=== PATIENT | male | born 1955 | race African-American/Black ===

== ENCOUNTER 2018-09-15 10:02 | Outpatient (CLI) | payer BC ==
[2018-09-15 11:30] LABS: Estimated GFR-MDRD - POC Greater than 90
--- NOTE | 2018-09-15 13:11 | MRI ---
BRAIN MRI WITH AND WITHOUT CONTRAST MRI PITUITARY WITH AND WITHOUT CONTRAST: INDICATION: A 63-year-old male with a history of prior benign pituitary tumor resection. Comparison is made to alondra [place] brain MRI 04/24/2017 at [facility]. FINDINGS: Stable postsurgical change of the sella with left asymmetric soft tissue enhancement which likely rel ates to residua of patient's pituitary gland. The infundibulum is grossly stable and maintains locat ion near the midline with slight inferior leftward deviation. There is no evidence of intraaxial mass, midline shift, or ventriculomegaly. There are a few scatter ed punctate signal abnormalities of the bilateral cerebral hemispheres which likely relate to mild ch ronic ischemic disease. No acute territorial infarction. 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 Bilateral signal alteration of the scalp soft tissues is stable. IMPRESSION: Stable postoperative brain MRI. POS: [facility]
== END 2018-09-15 10:03 | disposition home or self-care (01) ==
LOC: BICMRI 10:02
PROVIDERS: ATTEND Neurological Surgery
DX: D35.2 Benign neoplasm of pituitary gland (principal); Z98.890 Other specified postprocedural states
CPT/HCPCS: 70553; 82565

== ENCOUNTER 2019-04-21 05:47 | Day surgery (SDC) | payer BC ==
[2019-04-19 16:56] VITALS: BMI 28.0
[2019-04-21] MEDS ORDERED: Fentanyl 100 MCG/2 ML VIAL ONE (06:10)
[2019-04-21] MEDS ORDERED: Bupivacaine/Epinephrine 0.25% 30 ML VIAL ONE (06:53)
--- NOTE | 2019-04-21 11:51 | OP ---
DATE OF PROCEDURE: 04/21/2019 PREOPERATIVE DIAGNOSIS: Left inguinal hernia. PROCEDURE PERFORMED: Left inguinal hernia repair with mesh. INDICATIONS: The patient is a 63-year-old male, who has a painful bulge in left groin. He is able to reduce it. He has had a previous right inguinal hernia repair. FINDINGS: He had an indirect left inguinal hernia. It was chronic with very thickened sac very adherent to the cord structures. DESCRIPTION OF PROCEDURE: After informed consent was obtained, the patient was taken to the operating room and given general mask anesthesia, placed in the supine position. Left groin was prepped and draped in usual fashion. Local anesthesia infiltrated subcutaneously and deep. A transverse left inguinal incision was performed. Subcu divided sharply. The fascia was grasped and the external oblique fascia was incised in direction of its fibers through the external ring. The spermatic cord was very thickened. This was dissected from the pubic tubercle and isolated with a Familia drain. Cremasteric fibers were to expose the hernia sac. This was dissected from surrounding cord structures very carefully using blunt and sharp dissection. This was done down to the internal ring. The sac was large and was amputated about midpoint and closed with a 2-0 silk suture. Then, the sac was reduced and reduction maintained with a PHS hernia system. This was laid out and sutured to the pubic tubercle medially, tucked under the external oblique fascia laterally. A notch was cut out for the spermatic cord. The cord placed anatomically. Hemostasis was assured. The external oblique fascia closed with a running 3-0 Vicryl. Milton was closed with interrupted 3-0 Vicryl and the skin closed with a running subcuticular 4-0 Rapide. Steri-Strips applied. Sterile bandage applied. The patient tolerated the procedure well, transferred to Recovery in good condition. Sponge and needle count verified correct x2. Job ID: [id number]
[2019-04-21] MEDS ORDERED: PROPOFOL 200 MG/20 ML VIAL ONE (16:02)
[2019-04-21] MEDS ORDERED: Ondansetron PF 4 MG/2 ML Vial ONE (16:02)
[2019-04-21] MEDS ORDERED: Ketorolac Tromethamine 30 MG/ML VIAL ONE (16:02)
[2019-04-21] MEDS ORDERED: Lidocaine 1% PF 5 ML VIAL ONE (16:02)
== END 2019-04-21 10:00 | disposition home or self-care (01) ==
LOC: SDC 05:47
PROVIDERS: ATTEND Surgery
PROC: 0YU60JZ Supplement Left Inguinal Region with Synthetic Substitute, Open Approach (ICD-10-PCS; principal; 2019-04-21)
DX: K40.90 Unilateral inguinal hernia, without obstruction or gangrene, not specified as recurrent (principal); I10 Essential (primary) hypertension; E11.9 Type 2 diabetes mellitus without complications; Z79.4 Long term (current) use of insulin; Z79.899 Other long term (current) drug therapy
CPT/HCPCS: 36416; J0690; J1885; J2001; J2405; J2704; J3010

== ENCOUNTER 2019-05-10 22:54 | Emergency (ER) | payer BC ==
[2019-05-10 23:33] LABS: #Lymphocytes 1.5 thou/uL (1.20-3.40); #Monocytes 0.4 thou/uL (0.11-0.59); #Neutrophils 8.3 thou/uL (1.40-6.50); %Basophils 0.2 % (0.0-1.0); %Eosinophils 0.4 % (0.0-10.0); %Monocytes 3.7 % (0.0-10.0); %Neutrophils 80.7 % (42.0-75.0); Hemoglobin 12.7 g/dL (14.0-18.0); Mean Corpuscular HGB CONC 34.9 g/dL (32.0-36.0); Mean Corpuscular Hemoglobin 28.5 pg (27.0-31.0); Mean Corpuscular Volume 81.9 fL (78.0-98.0); Mean Platelet Volume 8.2 fL (7.4-10.4); Platelet Count 401 thou/uL (130-400); RBC Distribution Width 12.2 % (11.5-14.5); Red Blood Cell (RBC) Count 4.45 mill/uL (4.70-6.10); White Blood Cell (WBC) Count 10.2 thou/uL (4.8-10.8)
[2019-05-10 23:54] LABS: ALT (SGPT) Less than 7 U/L (8-55); AST (SGOT) 9 U/L (5-34); Albumin 3.6 g/dL (3.4-4.8); Alkaline Phosphatase 79 U/L (40-150); Anion Gap 6 mmol/L (10-20); BUN (Urea Nitrogen) 9 mg/dL (8.4-25.7); Bilirubin, Total 0.8 mg/dL (0.2-1.2); Calc. Creatinine Clearance 0 mL/min (70-130); Calcium 8.9 mg/dL (7.8-10.44); Carbon Dioxide 30 mmol/L (23-31); Chloride 101 mmol/L (98-107); Estimated GFR-MDRD 78; Globulin 3.9 g/dL (2.4-3.5); Glucose 268 mg/dL (80-115); Potassium 3.9 mmol/L (3.5-5.1); Protein, Total 7.5 g/dL (5.8-8.1); Sodium 133 mmol/L (136-145)
== END 2019-05-11 01:25 | disposition home or self-care (01) ==
LOC: ERS 22:54
DX: T78.40XA Allergy, unspecified, initial encounter (principal); E10.9 Type 1 diabetes mellitus without complications; I10 Essential (primary) hypertension; E03.9 Hypothyroidism, unspecified; E78.00 Pure hypercholesterolemia, unspecified; Z79.899 Other long term (current) drug therapy
CPT/HCPCS: 36415; 80053; 83880; 85025; 99283

== ENCOUNTER 2019-05-13 10:00 | Emergency (ER) | payer BC ==
[2019-05-13] MEDS ORDERED: Ondansetron PF 4 MG/2 ML Vial ONE (10:19)
[2019-05-13 10:39] LABS: #Lymphocytes 1.3 thou/uL (1.20-3.40); #Monocytes 0.5 thou/uL (0.11-0.59); #Neutrophils 11.6 thou/uL (1.40-6.50); %Basophils 0.1 % (0.0-1.0); %Eosinophils 0.2 % (0.0-10.0); %Lymphocytes 9.8 % (21.0-51.0); %Monocytes 3.4 % (0.0-10.0); %Neutrophils 86.4 % (42.0-75.0); Hemoglobin 12.9 g/dL (14.0-18.0); Mean Corpuscular HGB CONC 35.3 g/dL (32.0-36.0); Mean Corpuscular Volume 79.4 fL (78.0-98.0); Mean Platelet Volume 8.8 fL (7.4-10.4); Platelet Count 438 thou/uL (130-400); RBC Distribution Width 11.8 % (11.5-14.5); White Blood Cell (WBC) Count 13.4 thou/uL (4.8-10.8)
[2019-05-13] MEDS ORDERED: methylPREDNISolone Sod Succ/PF 125 MG/2 ML VIAL ONE (10:39)
[2019-05-13] MEDS ORDERED: diphenhydrAMINE 50 MG/ML VIAL ONE (10:39)
[2019-05-13] MEDS ORDERED: Famotidine/PF 20 mg/2ml Vial ONE (10:39)
[2019-05-13 11:11] LABS: ALT (SGPT) Less than 7 U/L (8-55); AST (SGOT) 11 U/L (5-34); Albumin 3.6 g/dL (3.4-4.8); Alkaline Phosphatase 74 U/L (40-150); Anion Gap 16 mmol/L (10-20); BUN (Urea Nitrogen) 13 mg/dL (8.4-25.7); Bilirubin, Total 0.9 mg/dL (0.2-1.2); Calc. Creatinine Clearance 0 mL/min (70-130); Calcium 8.8 mg/dL (7.8-10.44); Carbon Dioxide 23 mmol/L (23-31); Chloride 99 mmol/L (98-107); Estimated GFR-MDRD Greater than 90; Globulin 4.1 g/dL (2.4-3.5); Glucose 322 mg/dL (80-115); Potassium 3.6 mmol/L (3.5-5.1); Protein, Total 7.7 g/dL (5.8-8.1); Sodium 134 mmol/L (136-145)
--- NOTE | 2019-05-13 11:29 | CT ---
CT ABDOMEN AND PELVIS WITH IV CONTRAST 05/13/2019 CLINICAL INFORMATION: Patient with sudden onset of shortness of breath and difficulty swallowing. Patient also reports hist ory of prior hernia surgery 3 weeks ago and now has abdominal swelling. Vomiting. COMPARISON: CT abdomen and pelvis on 08/24/2016. Technique: Multiple contiguous axial CT images are obtained through the abdomen and pelvis with IV contrast. Cor onal reformatted images are provided. FINDINGS: Lower Chest: There is thickening of the visualized most distal esophagus extending to the level of th e GE junction. The most superior extent of the esophageal thickening is not imaged. There is surrounding fluid within the paraesophageal location in the lower posterior mediastinum. The lung bas es are clear. Vessels: Abdominal aorta is normal in caliber. Abdomen: Portal vein:Patent Gallbladder: Within normal limits for CT imaging. Liver: Calcified granuloma seen in the dome of the liver. Spleen: within normal limits. Pancreas: within normal limits. Adrenals: within normal limits. Kidneys: within normal limits. Bowel: Normal caliber. Appendix: The appendix is visualized and normal in caliber. Peritoneum: There is a small heterogeneous collection seen within the left anterolateral aspect of th e pelvis at the level of the inguinal canal measuring approximately 4.1 cm. This is in region of prior fat-containing inguinal hernia. Mesentery and Retroperitoneum: No enlarged mesenteric or retroperitoneal lymph nodes. Abdominal Wall: There is a large heterogeneous collection within the subcutaneous soft tissues left a nterolateral aspect of the pelvis, and this collection extends inferiorly and into the superior aspect of the scrotum. Areas of increased density are seen within this collection which may represent a hematoma. A punctate focus of gas is seen in the collection, and infection of a hematoma is a possibility. This collection measures 13 cm craniocaudal x 5.2 cm transverse x 4.3 cm AP. This collec tion is likely contiguous with the small collection within the anterolateral left pelvis. Pelvis: Reproductive Organs: No pelvic masses. Pelvis tiny amount of free fluid is seen in the lower pelvis. No pelvic mass is appreciated. No lymph adenopathy is seen. Bladder: within normal limits. Bones: within normal limits. IMPRESSION: 1. Circumferential wall thickening involving the distal esophagus. The esophageal wall thickening ext ends to the level of the GE junction. There is surrounding paraesophageal fluid within the lower posterior mediastinum. Most superior extent of esophageal thickening is not imaged. Esophagitis versu s neoplastic process are differential considerations. Endoscopy is recommended for further evaluation. 2. Large heterogeneous collection with findings suggesting a hematoma are seen in the subcutaneous so ft tissues of the left anterolateral pelvis with collection extending into the superior aspect of the scrotum. Punctate focus of gas is seen in this collection, and findings may be related to seconda ry infection of a hematoma. 3. Small heterogeneous collection within the left anterolateral pelvis likely contiguous with the col lection in the subcutaneous soft tissues. 4. Tiny amount of free fluid in the pelvis. Above findings discussed with Dr. Kumar in the emergency department on 05/13/2019 at 1122 hours. CODE CR. Transcribed Date/Time: 05/13/2019 11:45 AM
--- NOTE | 2019-05-13 11:32 | RAD ---
XR Chest 1 View Portable HISTORY: Dyspnea COMPARISON: 08/24/2016 FINDINGS: The heart size is normal. The lungs are well expanded without focal areas of consolidation, pneumothorax or pleural effusions. IMPRESSION: No radiographic evidence of acute cardiopulmonary process.
--- NOTE | 2019-05-13 14:02 | RAD ---
XR Barium Swallow Esophagus History: Chest pain. Evaluate for leak. Comparison: CT abdomen and pelvis same day Findings: Patient was given 30 mL of Gastrografin water-soluble contrast. No evidence for leak. No st ricture. Impression: No evidence for leak or distal esophageal stricture. Of note this was a limited evaluatio n to evaluate for esophageal leak.
== END 2019-05-13 14:32 | disposition home or self-care (01) ==
LOC: ERS 10:00
DX: T78.3XXA Angioneurotic edema, initial encounter (principal); E10.9 Type 1 diabetes mellitus without complications; E03.9 Hypothyroidism, unspecified; E78.00 Pure hypercholesterolemia, unspecified; I10 Essential (primary) hypertension; Z79.899 Other long term (current) drug therapy; Z79.84 Long term (current) use of oral hypoglycemic drugs
CPT/HCPCS: 36415; 71045; 74177; 74220; 80053; 83605; 85025; 93005; 96374; 96375; J1200; J2405; J2930; S0028

== ENCOUNTER 2019-05-15 20:41 | Inpatient (IN) | payer BC ==
[2019-05-15 21:31] LABS: #Eosinphils 0.1 thou/uL (0.0-0.7); #Lymphocytes 1.6 thou/uL (1.20-3.40); #Monocytes 0.4 thou/uL (0.11-0.59); #Neutrophils 7.2 thou/uL (1.40-6.50); %Basophils 0.2 % (0.0-1.0); %Eosinophils 0.6 % (0.0-10.0); %Lymphocytes 17.2 % (21.0-51.0); %Monocytes 3.9 % (0.0-10.0); Hemoglobin 13.4 g/dL (14.0-18.0); Mean Corpuscular HGB CONC 35.1 g/dL (32.0-36.0); Mean Corpuscular Hemoglobin 28.4 pg (27.0-31.0); Mean Platelet Volume 8.4 fL (7.4-10.4); Platelet Count 479 thou/uL (130-400); RBC Distribution Width 12.1 % (11.5-14.5); Red Blood Cell (RBC) Count 4.72 mill/uL (4.70-6.10); White Blood Cell (WBC) Count 9.2 thou/uL (4.8-10.8)
[2019-05-15] MEDS ORDERED: methylPREDNISolone Sod Succ/PF 125 MG/2 ML VIAL ONE (21:35)
[2019-05-15] MEDS ORDERED: diphenhydrAMINE 50 MG/ML VIAL ONE (21:35)
[2019-05-15] MEDS ORDERED: Famotidine/PF 20 mg/2ml Vial ONE (21:35)
[2019-05-15 21:52] LABS: ALT (SGPT) 7 U/L (8-55); AST (SGOT) 9 U/L (5-34); Albumin 3.4 g/dL (3.4-4.8); Alkaline Phosphatase 72 U/L (40-150); Anion Gap 9 mmol/L (10-20); BUN (Urea Nitrogen) 10 mg/dL (8.4-25.7); Bilirubin, Total 0.6 mg/dL (0.2-1.2); Calc. Creatinine Clearance 0 mL/min (70-130); Calcium 8.6 mg/dL (7.8-10.44); Carbon Dioxide 29 mmol/L (23-31); Chloride 99 mmol/L (98-107); Estimated GFR-MDRD 81; Globulin 3.9 g/dL (2.4-3.5); Glucose 241 mg/dL (80-115); Potassium 3.8 mmol/L (3.5-5.1); Protein, Total 7.3 g/dL (5.8-8.1); Sodium 133 mmol/L (136-145)
[2019-05-16] MEDS ORDERED: Ondansetron PF 4 MG/2 ML Vial IVP PRN (02:07)
[2019-05-16] MEDS ORDERED: Ondansetron ODT 4 MG TAB SL PRN (02:07)
[2019-05-16] MEDS ORDERED: Sodium Chloride 0.9% 1,000 ML IV SCH (02:08)
[2019-05-16] MEDS ORDERED: Dextrose 5% in Water 1,000 ML IV PRN (02:14)
[2019-05-16] MEDS ORDERED: Dextrose 50% Abboject 50 ML SYRINGE SLOW IVP PRN (02:14)
[2019-05-16] MEDS ORDERED: Acetaminophen 325 MG TAB PO PRN (02:18)
[2019-05-16] MEDS ORDERED: Acetaminophen 650 MG Suppository PR PRN (02:18)
--- NOTE | 2019-05-16 02:37 | HP ---
PRIMARY CARE DOCTOR: Reynaldo Espinoza MD CODE STATUS: Full code. TIME OF EVALUATION: 1:00 a.m. CHIEF COMPLAINT FOR THIS PATIENT: Evaluation for itching and lip swelling and feeling his throat was closing. HISTORY OF PRESENT ILLNESS: This is a 63-year-old male patient with past medical history of having allergies in the past 3 days. The patient came to the ER and got better, was discharged, came complaining of all the same symptoms, having some hives, lip swelling and feeling that his throat was closing with no clear triggers, no alleviating factors. The patient was not taking lisinopril in the past since the last time he was diagnosed with allergy, but the symptoms are continuing to get worse. Symptoms are severe. No clear triggers, no alleviating factors. Cannot establish a trigger. Initially thought it was medication, but he is not taking anymore. REVIEW OF SYSTEMS: All other systems reviewed and were negative except for the findings mentioned above. PAST MEDICAL HISTORY: The patient has a history of diabetes, hypothyroidism, high cholesterol, and hypertension. 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 PSYCHIATRIC HISTORY: No previous psych history. SOCIAL HISTORY: The patient denies alcohol use. No drug use. The patient has no smoking history. KNOWN ALLERGIES: No known drug allergies reported. MEDICATIONS: Lisinopril, atorvastatin, levothyroxine, potassium, Atarax, metformin. PHYSICAL EXAMINATION: VITAL SIGNS: On presentation, blood pressure 108/71 with heart rate 106, temperature 99.8, oxygen saturation 98% on room air. GENERAL APPEARANCE: The patient is alert, oriented, in no acute distress. HEENT: Eyes, normal conjunctivae. Moist oral mucosa. The patient has significant swelling of the lips and change in his voice. However, there is no stridor on physical exam. RESPIRATORY: Bilateral air entry. No rales. No wheezes. Symmetric expansion. CARDIOVASCULAR: Normal rate, regular rhythm. No murmurs. No gallop. No edema. ABDOMEN: Soft. Normal bowel sounds. MUSCULOSKELETAL: Baseline range of motion and strength. SKIN: Warm and intact. No pallor. No rash. No redness. Capillary refill seems to be intact. NEURO: No evidence of any new focal weakness. Cranial nerves seems to be intact. PSYCH: The patient is in good mood. No anxiety. Optimal judgment. LABORATORY DATA: Reviewed. The patient has white count of 9.2, hemoglobin 13.4, MCV 81, platelet count 279. Chemistry; sodium 133, potassium 3.8, chloride 99, carbon dioxide 29, anion gap 9, BUN 10, creatinine 1.11. GFR 81, glucose 241, calcium 8.6, total bilirubin 0.6, AST 9, ALT 7, alkaline phosphatase 72. Serum total protein 7.3, albumin 3.4, globulin 3.9, albumin to globulin ratio 0.9. ASSESSMENT AND PLAN: The patient will be placed in the hospital with following medical problems: 1. Allergy reaction, presenting with angioedema. The patient has significant swelling of the lips and change in his voice. The patient is receiving FFPs given concern for probably some hereditary component of this problem. The patient also had Benadryl, Pepcid, and steroids in ER. We will continue for now. 2. Normocytic anemia. This is mild, can be followed as outpatient. No need for any acute intervention at this point, it is chronic. 3. Hyponatremia, sodium 133, this is mild. No need for any acute intervention. Reconcile home medications. 4. Uncontrolled diabetes. The patient has hyperglycemia with blood sugar of 241. We will place the patient on a sliding scale for optimal control. 5. Hypertension, this is chronic, stable, reconcile home medications, except for CAROLYN inhibitors. 6. Deep venous thrombosis prophylaxis. Job ID: [id number]
[2019-05-16] MEDS ORDERED: Insulin Regular 300 UNITS/3 ML VIAL SC PRN (03:35)
[2019-05-16 03:59] VITALS: BMI 30.4
[2019-05-16 04:20] LABS: #Basophils 0.1 thou/uL (0.0-0.2); #Lymphocytes 0.6 thou/uL (1.20-3.40); #Monocytes 0.1 thou/uL (0.11-0.59); #Neutrophils 9.8 thou/uL (1.40-6.50); %Basophils 1.3 % (0.0-1.0); %Eosinophils 0.1 % (0.0-10.0); %Lymphocytes 5.5 % (21.0-51.0); %Monocytes 1.3 % (0.0-10.0); %Neutrophils 91.8 % (42.0-75.0); Hemoglobin 12.4 g/dL (14.0-18.0); Mean Corpuscular HGB CONC 34.5 g/dL (32.0-36.0); Mean Corpuscular Hemoglobin 28.1 pg (27.0-31.0); Mean Corpuscular Volume 81.5 fL (78.0-98.0); Mean Platelet Volume 8.7 fL (7.4-10.4); Platelet Count 453 thou/uL (130-400); Red Blood Cell (RBC) Count 4.43 mill/uL (4.70-6.10); White Blood Cell (WBC) Count 10.7 thou/uL (4.8-10.8)
[2019-05-16] MEDS: HumaLOG 300 UNITS/3 ML VIAL SC PRN ×5 (04:21→20:16)
[2019-05-16 04:38] LABS: Anion Gap 10 mmol/L (10-20); BUN (Urea Nitrogen) 13 mg/dL (8.4-25.7); Calc. Creatinine Clearance 85 mL/min (70-130); Carbon Dioxide 29 mmol/L (23-31); Chloride 99 mmol/L (98-107); Estimated GFR-MDRD 81; Glucose 320 mg/dL (80-115); Potassium 4.5 mmol/L (3.5-5.1); Sodium 133 mmol/L (136-145)
--- NOTE | 2019-05-16 12:00 | CON ---
DATE OF CONSULTATION: HISTORY OF PRESENT ILLNESS: Daniel Perea is a 63-year-old gentleman, who has been coming to the ER off and on, now for the last week with hives, lip swelling, throat swelling. He tells me he was finally admitted to the hospital. This morning, he is feeling better. The hives are better. He apparently has seen Dr. Strong in office for a lung nodule, which has been a 6 mm noncalcified in the right upper lobe, which has been stable. The patient is an extremely poor historian, but it appears he is a nonsmoker according to the , may be 1 or 2 cigarettes a day. No history of pneumonia, asthma, or TB. PAST MEDICAL HISTORY: Pertinent mainly for his hypothyroidism, high cholesterol, hypertension, and diabetes. PAST SURGICAL HISTORY: Amputation and previous hernia repair. HOME MEDICATIONS: 1. Metformin. 2. Lisinopril 20. 3. Insulin. ALLERGIES: NONE. SOCIAL HISTORY: Otherwise, unremarkable. REVIEW OF SYSTEMS: Otherwise, 10-point negative. PHYSICAL EXAMINATION: VITAL SIGNS: On examination, his saturations are 97% on room air, temperature 97, blood pressure 110/59, and respiratory rate 18. CHEST: No wheezing. CARDIAC: Normal S1 and S2. No gallops. ABDOMEN: No masses. THROAT: Unremarkable. LABORATORY DATA: Glucose 324, sodium 133. ASSESSMENT: 1. Hives, presumed angioedema, throat and lip swelling, possibly CAROLYN related. 2. Diabetes. 3. Lung nodule, followed by Dr. Strong, stable. PLAN: At this stage, nothing additional to offer. Avoid CAROLYN. Continue supportive care. He can be transferred out of the MICU. No urgent pulmonary issues. Job ID: [id number]
--- NOTE | 2019-05-16 16:22 | PDOC.HOSPP ---
- Subjective Encounter Date: 05/16/19 Encounter Time: 11:20 Subjective: Seen and examined. Feeling better. No new problem. - Objective Vital Signs & Weight: Vital Signs (12 hours) Temp Pulse Resp BP Pulse Ox 05/16/19 15:46 97.8 F 66 17 122/73 100 05/16/19 13:02 97.4 F L 85 18 97/61 98 05/16/19 10:35 97.4 F L 05/16/19 08:00 96 05/16/19 07:00 97.0 F L Weight Weight 194 lb 11.2 oz Most Recent Monitor Data Heart Rate from ECG 71 NIBP 111/59 NIBP BP-Mean 76 Respiration from ECG 16 SpO2 94 I&O: 05/15/19 05/16/19 05/17/19 06:59 06:59 06:59 Intake Total 422 Output Total 200 Balance 222 Result Diagrams: 05/16/19 03:57 05/16/19 03:57 Additional Labs: Accuchecks 05/16/19 05/16/19 05/16/19 15:51 10:22 05:58 POC Glucose 267 H 324 H 288 H 05/16/19 01:48 POC Glucose 281 H Hospitalist ROS - Medication Medications: Active Medications Generic Name Dose Route Start Last Admin Trade Name Freq PRN Reason Stop Dose Admin Insulin Human Lispro 0 units 05/16/19 02:14 05/16/19 11:24 Humalog SC 5 units .MILD SLIDING SCALE PRN Administration Mild Correctional Scale Insulin Human Lispro 0 units 05/16/19 04:17 05/16/19 04:21 Humalog SC 3 units .BEDTIME SLIDING SC PRN Administration BEDTIME SLIDING SCALE Protocol Sodium Chloride 10 ml 05/16/19 09:00 05/16/19 08:09 Flush - Normal Saline IVF Not Given Q12HR JORJE - Exam General Appearance: awake alert ENT: normocephalic atraumatic, moist mucosa ENT - other findings: no lip or tong sswelling noted. Heart: RRR Respiratory: CTAB Gastrointestinal: soft, non-tender, non-distended, normal bowel sounds Extremities: no cyanosis, no edema Extremities - other findings: left transmetacarpal amputation noted Neurological: cranial nerve grossly intact Psychiatric: A&O x 3 Hosp A/P (1) Angioedema Code(s): T78.3XXA - ANGIONEUROTIC EDEMA, INITIAL ENCOUNTER Status: Acute (2) Diabetes mellitus Code(s): E11.9 - TYPE 2 DIABETES MELLITUS WITHOUT COMPLICATIONS Status: Acute - Plan Continue current treatment. Transfer to medical floor.
[2019-05-17] MEDS ORDERED: diphenhydrAMINE 50 MG/ML VIAL IVP PRN (00:55)
[2019-05-17] MEDS ORDERED: Bacteriostatic Water 30 ML VIAL FS PRN (00:56)
[2019-05-17] MEDS ORDERED: methylPREDNISolone Sod Succ 40 MG VIAL IVP SCH (01:00)
[2019-05-17] MEDS: HumaLOG 300 UNITS/3 ML VIAL SC PRN ×2 (05:36→13:11)
[2019-05-17 06:48] LABS: Anion Gap 10 mmol/L (10-20); BUN (Urea Nitrogen) 13 mg/dL (8.4-25.7); Calc. Creatinine Clearance 104 mL/min (70-130); Calcium 8.4 mg/dL (7.8-10.44); Carbon Dioxide 27 mmol/L (23-31); Chloride 100 mmol/L (98-107); Estimated GFR-MDRD Greater than 90; Glucose 266 mg/dL (80-115); Potassium 4.3 mmol/L (3.5-5.1); Sodium 133 mmol/L (136-145)
--- NOTE | 2019-05-17 10:20 | PRG ---
DATE OF SERVICE: 05/17/2019 SUBJECTIVE: Daniel complains of nonspecific itching, swelling, though I see him to be in no distress. OBJECTIVE: VITAL SIGNS: His saturations are 97% on room air, respirations 18, temperature 97, blood pressure 120/78. CHEST: No wheezing or crackles. CARDIAC: Normal S1 and S2. No gallops. ABDOMEN: No masses. ASSESSMENT AND PLAN: Presumed angioedema, hives may be secondary to CAROLYN. Pulmonary roche appears to be stable. I would just avoid giving him CAROLYN. He will be sent home any time. Job ID: [id number]
[2019-05-17] MEDS ORDERED: diphenhydrAMINE 25 MG CAP PO PRN (12:49)
[2019-05-17 15:26] VITALS: BP 126/78; TEMP 97.6
--- NOTE | 2019-05-18 01:37 | DIS ---
DATE OF ADMISSION: 05/16/2019 DATE OF DISCHARGE: 05/17/2019 PRIMARY CARE PROVIDER: Reynaldo Espinoza MD DISCHARGE DIAGNOSES: 1. Angioedema. 2. Hives. 3. Hyponatremia. CONDITION OF PATIENT ON THE DAY OF DISCHARGE: Stable. I assessed Mr. Perea on the day of discharge. He denies any chest pain or shortness of breath. Lip swelling has improved. Eyelid swelling has improved. Vital signs are stable. S1 and S2 are heard, regular. Lungs are clear to auscultation bilaterally. CONSULTATIONS DURING THIS HOSPITALIZATION: Pulmonary and Critical Care Medicine, Dr. Jacobs. FOLLOWUP APPOINTMENTS: The patient is advised to follow up with primary care provider in 3 to 5 days time. DISCHARGE MEDICATIONS: Lisinopril has been discontinued. He has been advised to take his sitagliptin/metformin mg tablets 2 times a day, insulin as he was taking prior to this admission, and Lipitor 10 mg daily. HOSPITAL COURSE: Mr. Perea is a pleasant 63-year-old gentleman, who was admitted to [facility] on May 16, 2019, for angioedema in the context of lisinopril use. Lisinopril was discontinued. He was treated in the [facility] and subsequently transferred to the medical floor. He continued to improve. He has been cleared for discharge by Pulmonary and Critical Care Medicine Service. He has been advised to check his blood pressure and heart rate 3 times a day and show the readings to his primary care provider. He has been advised to stop lisinopril. Many thanks for allowing me to participate in your patient's care. Please feel free to contact me with any questions or concerns. DISCHARGE DESTINATION: Home. TIME SPENT: Total amount of time spent coordinating this discharge: 32 minutes. Job ID: [id number]
== END 2019-05-17 15:23 | disposition home or self-care (01) | DRG 916 ==
LOC: ERS 20:41 → IMCU/EMU 05-16 01:30 → T4-A 05-16 12:59
PROVIDERS: ADMIT Hospitalist; ATTEND Hospitalist
DX: T78.3XXA Angioneurotic edema, initial encounter (principal); E87.1 Hypo-osmolality and hyponatremia; E03.9 Hypothyroidism, unspecified; E78.00 Pure hypercholesterolemia, unspecified; I10 Essential (primary) hypertension; D64.9 Anemia, unspecified; R91.1 Solitary pulmonary nodule; E11.65 Type 2 diabetes mellitus with hyperglycemia; Z89.112 Acquired absence of left hand; F17.210 Nicotine dependence, cigarettes, uncomplicated
CPT/HCPCS: 36415; 36416; 36430; 71045; 74177; 74220; 80048; 80053; 83605; 85025; 86850; 86900; 86901; 93005; 96374; 96375; J1200; J2405; J2920; J2930; P9059; Q9963; Q9967; S0028

== ENCOUNTER 2019-05-18 00:53 | Inpatient (IN) | payer BC ==
[2019-05-18] MEDS ORDERED: diphenhydrAMINE 50 MG/ML VIAL ONE (01:22)
[2019-05-18] MEDS ORDERED: Famotidine/PF 20 mg/2ml Vial ONE (01:22)
[2019-05-18] MEDS ORDERED: methylPREDNISolone Sod Succ/PF 125 MG/2 ML VIAL ONE ×2 (01:22→01:27)
[2019-05-18] MEDS ORDERED: EPINEPHrine 1 MG/ML AMP ONE ×2 (02:10→02:40)
[2019-05-18] MEDS ORDERED: Ondansetron ODT 4 MG TAB SL PRN (04:51)
[2019-05-18] MEDS ORDERED: Ondansetron PF 4 MG/2 ML Vial IVP PRN (04:51)
[2019-05-18] MEDS ORDERED: EPINEPHrine 1 MG/ML AMP IM PRN ×2 (04:53→05:21)
[2019-05-18] MEDS ORDERED: Acetaminophen 325 MG TAB PO PRN (05:15)
[2019-05-18] MEDS ORDERED: HumaLOG 300 UNITS/3 ML VIAL SC PRN ×4 (05:20→08:48)
[2019-05-18] MEDS ORDERED: Dextrose 5% in Water 1,000 ML IV PRN (05:20)
[2019-05-18] MEDS ORDERED: Dextrose 50% Abboject 50 ML SYRINGE SLOW IVP PRN (05:20)
[2019-05-18] MEDS: diphenhydrAMINE 50 MG/ML VIAL IVP SCH ×3 (06:48→18:07)
--- NOTE | 2019-05-18 07:10 | HP ---
PRIMARY CARE PHYSICIAN: Reynaldo Espinoza MD CODE STATUS: Full code. TIME OF EVALUATION: 4 a.m. CHIEF COMPLAINT: Tongue swelling. HISTORY OF PRESENT ILLNESS: This is a 63-year-old male patient with past medical history of angioedema, who was recently discharged from the hospital for the same reason, diabetes type 1, hypothyroidism, high cholesterol, hypertension, who came to the hospital after having severe sudden onset and gradually worsening allergic reaction including eyes, tongue, upper respiratory airways, the patient's symptoms were severe to the point that he received in the ER not only Solu-Medrol, Benadryl and Pepcid, but also epinephrine x2. The symptoms have improved after the epinephrine. There was a concern of the patient having familial angioedema and for that reason, he is receiving 2 FFPs. The patient's has reported that the patient had been exposed to some "strange smell" in the house in her car that could be related to a car battery that was damaged in the past few days in the house. Other than that, we are unable to specifically determine what is giving the allergies to the patient. REVIEW OF SYSTEMS: All other systems were reviewed and negative except for the findings mentioned above. GASTROINTESTINAL: The patient had difficulty swallowing. PAST MEDICAL HISTORY: Positive for diabetes, hypothyroidism, high cholesterol, hypertension. PAST SURGICAL HISTORY: Amputation of 2 through 5 digits in the left hand, cardiac catheterization, and hernia repair. PSYCHIATRIC HISTORY: No previous psychiatric history. SOCIAL HISTORY: No alcohol. No drugs. No smoking history. KNOWN ALLERGIES: No known drug allergies. REPORTED MEDICATIONS: Positive for; 1. Atorvastatin. 2. Levothyroxine. 3. Tanzeum. 4. Atarax. 5. Metformin. PHYSICAL EXAMINATION: VITAL SIGNS: On presentation, blood pressure 117/75 with heart rate 91, respiratory rate was 18, temperature 98.4, pain was 8, oxygen saturation was 98% on room air. GENERAL APPEARANCE: The patient is alert, oriented, no acute distress. HEENT: The patient has bilateral swelling of the periorbital area and the eyelids. The patient also have tongue swelling and dysarthria due to the tongue swelling. No stridor. RESPIRATORY: Bilateral air entry. No rales. No wheezes. Symmetric expansion. CARDIOVASCULAR: Normal rate, regular rhythm. No murmurs. No gallop. No edema. ABDOMEN: Soft. Normal bowel sounds. MUSCULOSKELETAL: Baseline range of motion and strength. SKIN: Warm and dry. No pallor. No rash. No redness. Capillary refill seems to be intact. NEUROLOGIC: No evidence of any new or focal weakness. Cranial nerves seems to be intact. PSYCHIATRIC: The patient is in good mood. No anxiety. Optimal judgment. IMAGING: EKG was reviewed. The patient has normal sinus rhythm with a rate of [address] and prolonged QT. Labs reviewed and the only labs that we have available are the labs from prior to discharge that basically showed no significant abnormalities except for hyperglycemia. ASSESSMENT AND PLAN: The patient will be placed in the hospital with following medical problems. 1. Severe allergic reaction including angioedema with swelling of the tongue with dysarthria and also feeling of his throat closing, the patient also had bilateral eyelid swelling and also the periorbital area edema. The patient has received anti H1/H2, supportive care, also was given steroids. The patient also was given epinephrine x2. For that reason, we will monitor the patient closely. Symptoms seems to be improving, but very slowly. The patient had been ordered to receive FFP since the last time it looks the patient had some improvement with that. 2. Diabetes, reconcile home medications, place the patient on sliding scale. 3. Normocytic anemia, this has been stable. This can be followed as outpatient. 4. Deep venous thrombosis prophylaxis. 5. The patient may need an It Assistant to see him to determine why he is making allergies to. Job ID: [id number]
[2019-05-18] MEDS: Enoxaparin Sodium 40 MG/0.4 ML SYRINGE SC SCH (09:47)
[2019-05-18] MEDS: methylPREDNISolone Sod Succ/PF 125 MG/2 ML VIAL IVP SCH ×2 (09:47→22:09)
[2019-05-18] MEDS: Famotidine/PF 20 mg/2ml Vial SLOW IVP SCH (09:47)
[2019-05-18] MEDS: Insulin Glargine 30 UNITS in Pre-Filled Syringe 1 EACH SC SCH ×2 (13:32→22:09)
--- NOTE | 2019-05-18 14:28 | PDOC.HOSPP ---
- Subjective Encounter Date: 05/18/19 Encounter Time: 11:30 Subjective: no trouble breathing or swallowing still has his tongue swollen but far less than yesterday per patient no urticaria/itching anywhere today - Objective Vital Signs & Weight: Vital Signs (12 hours) Temp Pulse Resp Pulse Ox 05/18/19 08:00 98 05/18/19 05:32 97.7 F 18 96 05/18/19 05:00 98 05/18/19 04:40 97.8 F 81 18 95 Weight Weight 198 lb 4.8 oz Most Recent Monitor Data Heart Rate from ECG 66 NIBP 156/83 NIBP BP-Mean 107 Respiration from ECG 16 SpO2 98 I&O: 05/17/19 05/18/19 05/19/19 06:59 06:59 06:59 Intake Total 0 10.5 Output Total 200 Balance -200 10.5 Additional Labs: Accuchecks 05/18/19 06:08 POC Glucose 350 H Hospitalist ROS - Medication Medications: Active Medications Generic Name Dose Route Start Last Admin Trade Name Lindsey PRN Reason Stop Dose Admin Diphenhydramine HCl 25 mg 05/18/19 06:00 05/18/19 13:32 Benadryl IVP 05/21/19 15:15 25 mg Q6HR JORJE Administration Enoxaparin Sodium 40 mg 05/18/19 09:00 05/18/19 09:47 Lovenox SC 40 mg 0900 JORJE Administration Famotidine 20 mg 05/18/19 09:00 05/18/19 09:47 Pepcid SLOW IVP 05/22/19 15:15 20 mg DAILY JORJE Administration Insulin Glargine 30 units/ 0.3 mls @ 0 mls/hr 05/18/19 09:00 05/18/19 13:32 Miscellaneous Medication SC 0.3 mls BID JORJE Administration Methylprednisolone Sodium Succinate 125 mg 05/18/19 09:00 05/18/19 09:47 Solu-Medrol IVP 05/21/19 15:15 125 mg BID JORJE Administration - Exam General Appearance: awake alert Eye: PERRL, anicteric sclera ENT: no oropharyngeal lesions, moist mucosa ENT - other findings: tongue swelling+ Neck: supple, no JVD Heart: RRR, no rubs Respiratory: no wheezes, no rales Gastrointestinal: soft, non-tender, non-distended, normal bowel sounds Extremities: no cyanosis, no edema Neurological: cranial nerve grossly intact, no focal deficits Psychiatric: A&O x 3 Hosp A/P (1) Angioedema Code(s): T78.3XXA - ANGIONEUROTIC EDEMA, INITIAL ENCOUNTER Status: Suspected Qualifiers: Encounter type: subsequent encounter Qualified Code(s): T78.3XXD - Angioneurotic edema, subsequent encounter (2) Hypothyroidism Code(s): E03.9 - HYPOTHYROIDISM, UNSPECIFIED Status: Chronic Qualifiers: Hypothyroidism type: unspecified Qualified Code(s): E03.9 - Hypothyroidism , unspecified (3) HTN (hypertension) Code(s): I10 - ESSENTIAL (PRIMARY) HYPERTENSION Status: Chronic Qualifiers: Hypertension type: essential hypertension Qualified Code(s): I10 - Essential (primary) hypertension (4) Diabetes mellitus Code(s): E11.9 - TYPE 2 DIABETES MELLITUS WITHOUT COMPLICATIONS Status: Chronic Qualifiers: Diabetes mellitus type: type 2 Diabetes mellitus senior care insulin use: with senior care use - Plan is on solucortef, pepcid and benadryl add lantus bid hemostable, maintaining airway with no compromise may tx to medical floor needs further w/u with allergy/immunology as outpt Patient recieved 2 of epi, 2 ffp's, in addition to solumedrol, benadryl and pepcid in ER on arrival.
--- NOTE | 2019-05-18 14:39 | CON ---
DATE OF CONSULTATION: HISTORY OF PRESENT ILLNESS: Mr. Perea is a 63-year-old male. He is admitted to the intermediate care unit with diagnosis of angioedema. He apparently was recently admitted with similar event. He says he had tongue swelling and hives. He was treated in the emergency department and was admitted. He received FFP. PAST MEDICAL HISTORY: Remarkable for diabetes, hypothyroidism, lipid disorder, and hypertension. 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 He has had a herniorrhaphy and a cardiac catheterization. SOCIAL HISTORY: He is a nonsmoker, not a daily drinker. MEDICATIONS: He is on atorvastatin, Synthroid, Tanzeum, Atarax, and metformin prior to admission. PHYSICAL EXAMINATION: GENERAL: He is absolutely in no distress. Awakening from sleep. VITAL SIGNS: He is afebrile. Heart rate is 81, respiratory rate is 18, oximetry is 96%, and blood pressure is 124/68. HEAD AND NECK: Unremarkable. His tongue is not swollen. His oral exam is normal. His neck is without lymphadenopathy. LUNGS: Clear. SKIN: He does not have a rash. HEART: Regular rhythm. S1 and S2 are normal. ABDOMEN: Soft and nontender. EXTREMITIES: Without clubbing, cyanosis, or edema. NEURO: Nonfocal. IMPRESSION: 1. ?angioedema, resolved. He probably should be referred to an leather stitcher for an outpatient workup. 2. History of diabetes. 3. History of hypothyroidism. 4. History of lipid disorder. 5. History of hypertension. PLAN: He appears medically stable at this time. I would think he could be discharged home. Job ID: [id number]
[2019-05-19] MEDS: diphenhydrAMINE 50 MG/ML VIAL IVP SCH ×3 (01:00→11:32)
[2019-05-19 04:40] LABS: Anion Gap 10 mmol/L (10-20); BUN (Urea Nitrogen) 14 mg/dL (8.4-25.7); Calc. Creatinine Clearance 119 mL/min (70-130); Calcium 8.7 mg/dL (7.8-10.44); Carbon Dioxide 25 mmol/L (23-31); Chloride 104 mmol/L (98-107); Estimated GFR-MDRD Greater than 90; Glucose 192 mg/dL (80-115); Potassium 4.1 mmol/L (3.5-5.1); Sodium 135 mmol/L (136-145)
[2019-05-19 04:47] LABS: Band 1 % (5-11); Hemoglobin 11.3 g/dL (14.0-18.0); Hypochromia SLIGHT = 6-15 cells (100X) (0-5/hpf); Lymphocytes 2 % (21-51); MDiff Complete? YES; Mean Corpuscular HGB CONC 32.8 g/dL (32.0-36.0); Mean Corpuscular Hemoglobin 26.4 pg (27.0-31.0); Mean Corpuscular Volume 80.6 fL (78.0-98.0); Mean Platelet Volume 10.4 fL (7.4-10.4); Monocytes 1 % (0-10); Neutrophil 96 % (42-75); Platelet Count 187 thou/uL (130-400); Platelet Morphology Comment Appears Adequate; RBC Distribution Width 12.2 % (11.5-14.5); Red Blood Cell (RBC) Count 4.26 mill/uL (4.70-6.10); White Blood Cell (WBC) Count 11.1 thou/uL (4.8-10.8)
[2019-05-19 06:10] VITALS: BMI 26.4
[2019-05-19] MEDS ORDERED: metFORMIN 500 MG TAB PO SCH (08:00)
[2019-05-19] MEDS ORDERED: sitaGLIPtin Phosphate 25 MG TAB PO SCH (08:00)
[2019-05-19] MEDS ORDERED: Non-Formulary Item 1 EACH (Sitagliptin Phos/Metformin Hcl [Janumet] 1 TABLET) PO SCH (08:00)
[2019-05-19] MEDS ORDERED: predniSONE 20 MG TAB PO SCH (08:00)
[2019-05-19] MEDS: Enoxaparin Sodium 40 MG/0.4 ML SYRINGE SC SCH (08:56)
[2019-05-19] MEDS: Famotidine/PF 20 mg/2ml Vial SLOW IVP SCH (08:56)
[2019-05-19] MEDS ORDERED: Insulin Glargine 15 UNITS in Pre-Filled Syringe 1 EACH SC SCH (09:00)
[2019-05-19] MEDS ORDERED: Atorvastatin Calcium 10 MG TAB PO SCH (09:00)
[2019-05-19] MEDS ORDERED: Alogliptin 6.25 MG TAB PO SCH (09:15)
--- NOTE | 2019-05-19 09:55 | PRG ---
DATE OF SERVICE: 05/19/2019 SUBJECTIVE: Daniel Perea has no complaints. He denies tongue swelling or hives. He says he feels great. OBJECTIVE: VITAL SIGNS: He is afebrile, heart rate 70, respiratory rate 16, oximetry is 99, and blood pressure 139/78. HEENT: His tongue is normal. LUNGS: Clear. HEART: Regular rhythm. ABDOMEN: Soft. EXTREMITIES: Without edema. LABORATORY DATA: White count 11.1, hemoglobin 11.3, and platelets 187. Electrolytes are normal. IMPRESSION: ? Angioedema versus an allergic reaction to something. I have suggested allergy testing as an outpatient. He can be tapered off steroids over a week. Job ID: [id number]
[2019-05-19 15:57] VITALS: BP 117/69; TEMP 97.5
--- NOTE | 2019-05-19 19:04 | DIS ---
DATE OF ADMISSION: 05/18/2019 DATE OF DISCHARGE: 05/19/2019 DISCHARGE DISPOSITION: Home. PRIMARY DISCHARGE DIAGNOSIS: Angioedema/urticaria, resolved, this was recurrent. SECONDARY DISCHARGE DIAGNOSES: Hypertension, hypothyroidism, and diabetes mellitus type 2. PROCEDURES DONE DURING HOSPITALIZATION: H and H 11 and 34, platelet count 187, MCV is 90, and white count of 11. Discharge BUN and creatinine are 14 and 0.8. DISCHARGE MEDICATIONS: 1. Atorvastatin 10 mg p.o. daily. 2. Janumet mg p.o. 1 tablet twice daily. 3. Benadryl 25 mg twice daily for a period of 6 days. 4. Lantus 10 units subcu daily for 1 week. 5. Prednisone tapering dose starting at 10 mg twice daily for 4 days, then daily for 4 days, then half tablet for 4 days and to discontinue. ALLERGIES: NO KNOWN DRUG ALLERGIES. INPATIENT CONSULT: Dr. Becker for Pulmonary Critical Care. DISCHARGE PLAN: The patient to follow up with Dr. Juan Shafer, allergy cleaner operator tomorrow at 8:00 a.m. He also needs to follow up with Dr. Espinoza, his primary care physician in 1 week BRIEF COURSE DURING HOSPITALIZATION: The patient initially got readmitted after being discharged for urticaria with angioedema symptoms. He came in with complaints of tongue swelling with swelling of his eyelids, difficulty breathing, and itching in his extremities with wheal and flare. The patient's also mentions that he got exposed to some strange smell in the house in car, which could be related to a car battery that was damaged in the past few days. He has not had any new changes in his medications. The patient was given 2 doses of epinephrine in the ER along with Solu-Medrol, Benadryl, and Pepcid. He also received 2 units of FFP for suspicion of angioedema. He was evaluated by Dr. Becker for Pulmonary Critical Care. The patient initially was in IMCU for 24 hours and later downgraded to medical floor. This morning, the patient's tongue swelling has completely resolved. He is taking solid food. No itching or urticaria this morning. He is ambulating in the room. In view of recurrent episodes of severe oropharyngeal swelling with urticarial symptoms, the patient has been set up to see Dr. Hollis Martinez, allergy cleaner operator tomorrow at 8:00 a.m. He needs to continue prednisone taper for over the course of 12 days. He is a diabetic and Lantus has been added 10 units to be taken daily for a period of 1 week as the prednisone tapers off, Benadryl twice daily for a period of 6 days. He is otherwise hemodynamically stable and will be shortly discharged home. Please note, I have seen and examined the patient on the day of discharge. Job ID: [id number]
[2019-05-20] MEDS ORDERED: Alogliptin 6.25 MG TAB PO SCH (08:00)
== END 2019-05-19 16:35 | disposition home or self-care (01) | DRG 916 ==
LOC: ERS 00:53 → IMCU/EMU 04:41 → T4-B 20:47
PROVIDERS: ADMIT Hospitalist; ATTEND Hospitalist
PROC: 3E033XZ Introduction of Vasopressor into Peripheral Vein, Percutaneous Approach (ICD-10-PCS; principal; 2019-05-18)
DX: T78.3XXA Angioneurotic edema, initial encounter (principal); E10.9 Type 1 diabetes mellitus without complications; E03.9 Hypothyroidism, unspecified; E78.00 Pure hypercholesterolemia, unspecified; I10 Essential (primary) hypertension; E11.9 Type 2 diabetes mellitus without complications; D64.9 Anemia, unspecified; Z79.899 Other long term (current) drug therapy; Z79.84 Long term (current) use of oral hypoglycemic drugs; Z79.890 Hormone replacement therapy; Z89.022 Acquired absence of left finger(s)
CPT/HCPCS: 36415; 36416; 36430; 80048; 85025; 86850; 86900; 86901; 93005; 96361; 96372; 96374; 96375; J0171; J1200; J1650; J1815; J2930; J7512; P9059; S0028

== ENCOUNTER 2019-05-22 10:15 | Inpatient (IN) | payer BC ==
[2019-05-22 10:39] LABS: #Eosinphils 0.1 thou/uL (0.0-0.7); #Lymphocytes 1.9 thou/uL (1.20-3.40); #Monocytes 0.7 thou/uL (0.11-0.59); #Neutrophils 8.5 thou/uL (1.40-6.50); %Basophils 0.3 % (0.0-1.0); %Eosinophils 0.6 % (0.0-10.0); %Lymphocytes 17.3 % (21.0-51.0); %Monocytes 6.1 % (0.0-10.0); %Neutrophils 75.7 % (42.0-75.0); Hemoglobin 11.7 g/dL (14.0-18.0); Mean Corpuscular HGB CONC 34.8 g/dL (32.0-36.0); Mean Corpuscular Hemoglobin 28.2 pg (27.0-31.0); Mean Corpuscular Volume 80.9 fL (78.0-98.0); Mean Platelet Volume 7.7 fL (7.4-10.4); Platelet Count 486 thou/uL (130-400); RBC Distribution Width 12.2 % (11.5-14.5); Red Blood Cell (RBC) Count 4.16 mill/uL (4.70-6.10); White Blood Cell (WBC) Count 11.2 thou/uL (4.8-10.8)
[2019-05-22 10:59] LABS: ALT (SGPT) 9 U/L (8-55); AST (SGOT) 10 U/L (5-34); Albumin 3.5 g/dL (3.4-4.8); Alkaline Phosphatase 70 U/L (40-110); Anion Gap 11 mmol/L (10-20); BUN (Urea Nitrogen) 12 mg/dL (8.4-25.7); Bilirubin, Total 0.4 mg/dL (0.2-1.2); Calc. Creatinine Clearance 0 mL/min (70-130); Calcium 8.8 mg/dL (7.8-10.44); Carbon Dioxide 29 mmol/L (23-31); Chloride 102 mmol/L (98-107); Estimated GFR-MDRD Greater than 90; Globulin 3.5 g/dL (2.4-3.5); Glucose 255 mg/dL (80-115); Lipase 104 U/L (8-78); Potassium 3.8 mmol/L (3.5-5.1); Sodium 138 mmol/L (136-145)
[2019-05-22] MEDS ORDERED: Metoprolol Tartrate 5 MG/5 ML VIAL ONE (11:23)
[2019-05-22] MEDS ORDERED: Ondansetron PF 4 MG/2 ML Vial ONE (11:25)
[2019-05-22] MEDS ORDERED: Metoprolol Tartrate 5 MG/5 ML VIAL IVP SCH (11:30)
[2019-05-22] MEDS ORDERED: Diltiazem 125 MG/25 ML ONE (11:36)
[2019-05-22] MEDS ORDERED: Diltiazem HCl 125 MG, Admixture Fee 1 EACH in Sodium Chloride 0.9% 100 ML IVPB SCH (11:45)
[2019-05-22 12:15] LABS: CKMB 1.3 ng/mL (0-6.6)
--- NOTE | 2019-05-22 12:16 | RAD ---
Chest AP view INDICATION: Nausea vomiting COMPARISON: None FINDINGS: Lungs:Low lung volumes. No infiltrate. Cardiac silhouette:The situated by exam technique. Pulmonary vasculature:Normal Pleural spaces:No pleural effusion or pneumothorax is demonstrated. Upper abdomen:No abnormality seen. Osseous structures: No acute osseous abnormality. Additional findings:Stable calcified lymph nodes within the hilar regions and mediastinum. IMPRESSION: Low lung volumes. No infiltrate. Findings of prior granulomatous disease.
[2019-05-22 13:48] LABS: Bacteria/HPF None Seen HPF (None Seen); Bilirubin Negative (Negative); Blood, Urine Negative (Negative); Clarity Clear (Clear); Glucose, Urine (Dipstick) Greater than 1000 mg/dL (Negative); Leukocyte Negative Leu/uL (Negative); Nitrite Negative (Negative); Protein, Urine (Dipstick) 30 mg/dL (Neg-Trace); RBC/HPF 0-3 HPF (0-3); Squamous Epithelial 0-3 HPF (0-3); Urobilinogen Normal mg/dL (Less than 2); WBC/HPF 0-3 HPF (0-3)
[2019-05-22] MEDS ORDERED: Diltiazem 125 MG in Sodium Chloride 0.9% 100 ML IVPB SCH (15:34)
[2019-05-22] MEDS ORDERED: Dextrose 50% Abboject 50 ML SYRINGE SLOW IVP PRN ×2 (15:34→17:35)
[2019-05-22] MEDS ORDERED: Dextrose 5% in Water 1,000 ML IV PRN ×2 (15:34→17:35)
[2019-05-22] MEDS ORDERED: hydrALAZINE 20 MG/ML VIAL SLOW IVP PRN (15:34)
[2019-05-22] MEDS ORDERED: Acetaminophen 325 MG TAB PO PRN (15:34)
[2019-05-22 15:36] VITALS: BMI 26.3
[2019-05-22] MEDS ORDERED: Enoxaparin Sodium 80 MG/0.8 ML SYRINGE SC SCH (16:00)
[2019-05-22] MEDS: Dronedarone HCl 400 MG TAB PO SCH (17:09)
[2019-05-22 17:33] LABS: Free T4 (Free Thyroxine) 0.81 ng/dL (0.70-1.48); Thyroid Stimulating Hormone 0.4666 uIU/mL (0.35-4.94)
[2019-05-22] MEDS: HumaLOG 300 UNITS/3 ML VIAL SC PRN ×2 (17:45→21:43)
--- NOTE | 2019-05-22 18:11 | CON ---
DATE OF CONSULTATION: 05/22/2019 PRIMARY FISHER SPONGE HOOKING: Cheng Li MD REASON FOR CONSULTATION: Atrial fibrillation with RVR. HISTORY OF PRESENT ILLNESS: Mr. Perea is a pleasant 64-year-old gentleman, who comes to the hospital for not feeling well. He was nauseated for the last 2 weeks. He actually left the hospital just 3 days ago after having an episode of angioedema after he was started on lisinopril. He received epinephrine and steroids and eventually was discharged home. He states that he felt he was really weak and dehydrated and extremely poor in the last couple of days, so he decided to come in. He was found to be in atrial fibrillation with RVR. He was started on diltiazem drip and admitted for this. He denies any chest pain, tightness, or pressure. He was seen by Dr. Li back in 2014, at which point he was having episodes of chest pain. He had a stress test, which was unremarkable for ischemia. PAST MEDICAL HISTORY: 1. Hypertension. 2. Diabetes. 3. Hypothyroidism. 4. Hyperlipidemia. PAST SURGICAL HISTORY: 1. 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 2. Hernia repair. 3. Cardiac catheterization in the past apparently. I cannot find this on our system. He does not recall. SOCIAL HISTORY: No alcohol, tobacco, or drugs. OUTPATIENT MEDICATIONS: On recent discharge, he was sent home on; 1. Janumet. 2. Prednisone 10 mg b.i.d. 3. Benadryl 25 mg b.i.d. 4. Lantus insulin. 5. Atorvastatin 10 mg a day. ALLERGIES: LISINOPRIL GIVES HIM ANGIOEDEMA. REVIEW OF SYSTEMS: A 12-point review of systems was done and was all negative unless stated in the history of present illness. FAMILY HISTORY: Noncontributory. PHYSICAL EXAMINATION: VITAL SIGNS: Temperature 97.8, pulse 89, respiratory rate 17, saturating 97% on room air, and blood pressure 129/76. GENERAL: Awake, alert, oriented x3. No distress. HEENT: Normocephalic, atraumatic. NECK: Supple. LUNGS: Clear. CARDIOVASCULAR: Irregularly irregular. Heart rate in the 120s. No murmurs. ABDOMEN: Soft. Positive bowel sounds. EXTREMITIES: No edema. Missing all his digits on both hands. SKIN: Warm and dry. LABORATORY DATA: Laboratory work was reviewed. White count of 11, hemoglobin of 11, hematocrit of 33, platelet count of 486. Chemistry is unremarkable except for glucose of 255. Troponin-I is 0.05 with a normal CK-MB. Lipase is 104. UA is unremarkable. Telemetry shows atrial fibrillation with RVR in the 120s. Chest x-ray with low lung volumes. No infiltrates. Prior granulomatous disease. No CHF. ASSESSMENT AND PLAN: 1. Atrial fibrillation with rapid ventricular response, new onset. Continue rate control with diltiazem drip. We will add Multaq. Hopefully, the Multaq will convert him. Otherwise, he may need a SASHA cardioversion. 2. We will start Eliquis for full anticoagulation for stroke prophylaxis as his CHADS-VASc score is 2 for high blood pressure and diabetes. Thank you for letting us participate in the care of your patient. Job ID: [id number]
[2019-05-22] MEDS: Insulin Glargine 10 UNITS in Pre-Filled Syringe 1 EACH SC SCH (21:42)
--- NOTE | 2019-05-22 22:21 | HP ---
PRIMARY CARE PHYSICIAN: Dr. Espinoza. CHIEF COMPLAINT: Vomiting and nausea for 2 days. HISTORY OF PRESENT ILLNESS: History of present illness is a bit limited as the patient is a poor historian, but Mr. Perea is a very pleasant 64-year-old gentleman, who has a history of hypertension and diabetes. He says about 2 days ago, he started feeling nauseated and was throwing up. He also started to feel lightheaded and dizzy when he stood up. He says when he is lying down, he does not feel bad, only when he tries to get up. He denies having any abdominal pain during this time. He also denies any chest pain. He says his last bowel movement was around 10 o'clock today and it was normal except it was a little bit hard. He says that the symptoms got progressively worse and last night he even felt his heart was skipping some off and on and as a result, he came to the ER today for evaluation. In the ER, he was found to be in atrial fibrillation with rapid ventricular response. He was given a dose of metoprolol, which did not help and then started on a Cardizem drip after being loaded with diltiazem and this has improved and he is being admitted for further evaluation. The patient also denies any leg pain or leg swelling. No PND. No orthopnea and essentially no other complaints. REVIEW OF SYSTEMS: CONSTITUTIONAL: No fevers or chills. No night sweats. No weight loss. HEENT: He denies any headaches, but he has had some dizziness. No sore throat, rhinorrhea, neck pain. No adenopathy. PULMONARY: No hemoptysis. No cough. No wheezing. CARDIOVASCULAR: As the history of present illness. GASTROINTESTINAL: Also has a history of present illness. GENITOURINARY: He has recently had an inguinal hernia repair and says he still has some swelling in the left groin area, but no dysuria. No frequency. MUSCULOSKELETAL: He denies any muscle pains, weakness, or joint pains. NEUROLOGIC: No focal weakness or numbness. No seizures. PSYCHIATRIC: No symptoms of anxiety or depression. SKIN AND INTEGUMENT: No skin changes. No rash. PAST MEDICAL HISTORY: Significant for diabetes mellitus, hypertension, hyperlipidemia, and hypothyroidism. 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 ALLERGIES: TO LISINOPRIL, WHICH CAUSES ANGIOEDEMA. SOCIAL HISTORY: He is a nonsmoker, nondrinker. He occasionally drinks caffeine. He is . 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 FAMILY HISTORY: Significant for diabetes mellitus on both sides of the family as well as heart disease. CURRENT MEDICATIONS: Include; 1. Atorvastatin 80 mg at bedtime. 2. Levothyroxine 50 mcg p.o. daily. 3. Atarax 25 mg q.8h as needed. 4. Metformin 1000 mg twice daily. 5. Singulair 10 mg daily. 6. Ranitidine 150 mg twice a day. PHYSICAL EXAMINATION: GENERAL: He is alert and oriented. He appears to be in no acute distress. He is well developed and well nourished. VITAL SIGNS: Blood pressure was 126/74, his heart rate is around 96, respiratory rate of 16, and temperature is afebrile. HEENT: Pupils are equal, round, and reactive. Extraocular muscles are intact. Sclerae are anicteric. Throat, there is no erythema. He is edentulous. NECK: There is no adenopathy. No appreciable bruits. LUNGS: Clear to auscultation. No wheezing. No rales. No rhonchi. CARDIOVASCULAR: He has a normal S1 and S2. His heart rhythm with irregular. No murmurs, no clicks, no rubs. ABDOMEN: Soft, nontender, and nondistended. Positive for bowel sounds. There is no rebound no guarding. No organomegaly. EXTREMITIES: There is no clubbing, no cyanosis, no edema. No obvious joint effusions. NEUROLOGIC: He is grossly nonfocal. SKIN AND INTEGUMENT: No skin changes. No rash. LABORATORY DATA: Sodium is 138, potassium 3.8, chloride is 102, CO2 is 29, BUN of 12, creatinine 0.99, and glucose is 255. Troponin less than 0.015. White blood cell count 11.2, hemoglobin 11.7, hematocrit is 33.7, and platelet count is 486. Troponin is 0.051. ASSESSMENT: This is a pleasant 64-year-old gentleman, who presents with dizziness and nausea and vomiting. I suspect this could be due to the atrial fibrillation with a rapid heart rate. His heart rate was initially in the 150s when he came to the ER. 1. Atrial fibrillation. We will continue the Cardizem drip. An echocardiogram will be ordered. Consult Cardiology and since he has been sustained in atrial fibrillation for a few hours, we will go ahead and start him on anticoagulation with Lovenox full dose and then transitioned him to an oral agent, likely depending on which will be best for him as far as ease of administration. 2. History of hypothyroidism. We will need to check a free T and TSH to make sure that he is not over replaced with regard to his thyroid disease, which could be a risk factor for atrial fibrillation. 3. Diabetes mellitus. We will hold the metformin for now in the event that he may need a test with contrast and place him on a sliding scale and low-dose long-acting insulin just for now. 4. Dyslipidemia. We will continue his atorvastatin and further recommendations to follow. Job ID: [id number]
--- NOTE | 2019-05-22 22:40 | ULT ---
US Soft Tissue Other HISTORY: Left groin mass. Patient has history of hernia surgery. COMPARISON: CT examination of 05/13/2019. FINDINGS: Superior to the testicles in the left inguinal region is a large complex collection which d oes not show any internal blood flow and shows no evidence of peristalsis. This is most compatible with a large hematoma. It measures 3.7 x 8.2 cm in size. This is slightly decreased as compared to th e prior CT examination. IMPRESSION: Slight decrease in size of a large left groin hematoma.
[2019-05-23] MEDS ORDERED: diphenhydrAMINE 50 MG/ML VIAL IVP SCH (05:00)
[2019-05-23] MEDS ORDERED: Triamcinolone 0.1% Cream 15 GM TUBE TOP PRN (05:48)
[2019-05-23 06:45] LABS: Anion Gap 9 mmol/L (10-20); BUN (Urea Nitrogen) 10 mg/dL (8.4-25.7); Calc. Creatinine Clearance 119 mL/min (70-130); Calcium 8.4 mg/dL (7.8-10.44); Carbon Dioxide 25 mmol/L (23-31); Chloride 105 mmol/L (98-107); Estimated GFR-MDRD Greater than 90; Glucose 120 mg/dL (80-115); Potassium 3.4 mmol/L (3.5-5.1); Sodium 136 mmol/L (136-145)
[2019-05-23 07:54] LABS: Eosinophils 2 % (0-10); Hemoglobin 11.2 g/dL (14.0-18.0); Lymphocytes 34 % (21-51); MDiff Complete? YES; Mean Corpuscular HGB CONC 34.9 g/dL (32.0-36.0); Mean Corpuscular Hemoglobin 27.8 pg (27.0-31.0); Mean Corpuscular Volume 79.9 fL (78.0-98.0); Mean Platelet Volume 8.2 fL (7.4-10.4); Monocytes 5 % (0-10); Neutrophil 59 % (42-75); Platelet Count 396 thou/uL (130-400); RBC Distribution Width 12.4 % (11.5-14.5); Red Blood Cell (RBC) Count 4.01 mill/uL (4.70-6.10); White Blood Cell (WBC) Count 8.1 thou/uL (4.8-10.8)
[2019-05-23] MEDS: Insulin Glargine 10 UNITS in Pre-Filled Syringe 1 EACH SC SCH ×2 (08:27→21:00)
[2019-05-23] MEDS: Dronedarone HCl 400 MG TAB PO SCH ×2 (08:27→16:05)
[2019-05-23] MEDS: Enoxaparin Sodium 80 MG/0.8 ML SYRINGE SC SCH ×2 (08:28→20:58)
[2019-05-23] MEDS: HumaLOG 300 UNITS/3 ML VIAL SC PRN ×2 (10:51→20:58)
--- NOTE | 2019-05-23 12:49 | PDOC.HOSPP ---
- Subjective Encounter Date: 05/23/19 Encounter Time: 12:46 Subjective: Feels ok. No complaints. - Objective Vital Signs & Weight: Vital Signs (12 hours) Temp Pulse Resp BP BP Pulse Ox 05/23/19 11:00 97.9 F 73 17 102/57 L 95 05/23/19 07:00 98.1 F 63 18 136/70 100 05/23/19 04:56 97.6 F 66 12 108/52 L 100 Weight Weight 194 lb 3 oz I&O: 05/22/19 05/23/19 05/24/19 06:59 06:59 06:59 Intake Total 527 Output Total 325 Balance 202 Result Diagrams: 05/23/19 06:04 05/23/19 06:04 Additional Labs: Accuchecks 05/23/19 05/23/19 05/22/19 10:51 06:24 21:25 POC Glucose 234 H 130 H 202 H 05/22/19 16:58 POC Glucose 247 H Hospitalist ROS - Medication Medications: Active Medications Generic Name Dose Route Start Last Admin Trade Name Freq PRN Reason Stop Dose Admin Dronedarone 400 mg 05/22/19 17:00 05/23/19 08:27 Multaq PO 400 mg BID-WM JORJE Administration Enoxaparin Sodium 80 mg 05/23/19 09:00 05/23/19 08:28 Lovenox SC 80 mg 0900,2100 JORJE Administration Insulin Glargine 10 units/ 0.1 mls @ 0 mls/hr 05/22/19 21:00 05/22/19 21:42 Miscellaneous Medication SC 0.1 mls HS JORJE Administration Insulin Glargine 10 units/ 0.1 mls @ 0 mls/hr 05/23/19 09:00 05/23/19 08:27 Miscellaneous Medication SC 0.1 mls QAM JORJE Administration Insulin Human Lispro 0 units 05/22/19 17:35 05/23/19 10:51 Humalog SC 4 unit .MODERATE SLIDING SC PRN Administration Moderate Correctional Scale Insulin Human Lispro 0 units 05/22/19 17:35 05/22/19 21:43 Humalog SC 2 unit .BEDTIME SLIDING SC PRN Administration Bedtime Correctional Scale Triamcinolone Acetonide 0 gm 05/23/19 05:48 05/23/19 08:30 Kenalog 0.1% Cream TOP 1 applic BIDPRN PRN Administration Hives - Exam General Appearance: NAD, awake alert Heart: RRR, no murmur, no gallops, no rubs, normal peripheral pulses Respiratory: CTAB, no wheezes, no rales, no ronchi, normal chest expansion, no tachypnea, normal percussion Gastrointestinal: soft, non-tender, non-distended, normal bowel sounds, no palpable masses, no hepatomegaly, no splenomegaly, no bruit Extremities: no cyanosis, no clubbing, no edema Musculoskeletal: normal tone Psychiatric: normal affect, normal behavior, A&O x 3 Hosp A/P (1) Atrial fibrillation with rapid ventricular response Code(s): I48.91 - UNSPECIFIED ATRIAL FIBRILLATION Status: Acute (2) Diabetes mellitus Code(s): E11.9 - TYPE 2 DIABETES MELLITUS WITHOUT COMPLICATIONS Status: Chronic (3) HTN (hypertension) Code(s): I10 - ESSENTIAL (PRIMARY) HYPERTENSION Status: Chronic Qualifiers: (4) Hypothyroidism Code(s): E03.9 - HYPOTHYROIDISM, UNSPECIFIED Status: Chronic Qualifiers: (5) Hypokalemia Code(s): E87.6 - HYPOKALEMIA Status: Acute - Plan Afib converted to NSR with normal rate. DC Dilt gtt. Ambulate. Continue anticoagulation. Cards following. Blood sugars controlled. Will give a little potassium.
[2019-05-23] MEDS ORDERED: Potassium Chloride 20 MEQ TAB PO SCH (13:00)
--- NOTE | 2019-05-23 18:05 | PDOC.CPN ---
- Subjective Date: 05/23/19 Time: 18:02 Interval history: He converted to sinus rhythm overnight. He is doing well tolerating all meds. - Review of Systems General: denies: fever/chills, weight/appetite/sleep changes, night sweats, fatigue Respiratory: denies: cough, congestion, shortness of breath, exercise intolerance Cardiovascular: denies: chest pain, palpitation, edema, paroxysmal nocturnal dyspnea, orthopnea Gastrointestinal: denies: nausea, vomiting, diarrhea, constipation, abd pain, GI bleeding Musculoskeletal: denies: pain, tenderness, stiffness, swelling, arthritis/ arthralgias Neurological: denies: numbness, syncope, seizure, weakness - Objective Allergies/Adverse Reactions: Allergies Allergy/AdvReac Type Severity Reaction Status Date / Time lisinopril Allergy Verified 05/22/19 15:50 Visit Medications: Current Medications Acetaminophen (Tylenol) 650 mg PO Q4H PRN PRN Reason: Headache/Fever/Mild Pain (1-3) Dextrose/Water (Dextrose 50%) 25 gm SLOW IVP PRN PRN PRN Reason: Hypoglycemia Dextrose/Water (Dextrose 50%) 25 gm SLOW IVP PRN PRN PRN Reason: Hypoglycemia Dronedarone (Multaq) 400 mg PO BID-[facility] Last Admin: 05/23/19 16:05 Dose: 400 mg Enoxaparin Sodium (Lovenox) 80 mg SC 0900,2100 [facility] Last Admin: 05/23/19 08:28 Dose: 80 mg Glucagon (Glucagon) 1 mg IM PRN PRN PRN Reason: Hypoglycemia Glucagon (Glucagon) 1 mg IM PRN PRN PRN Reason: Hypoglycemia Hydralazine HCl (Apresoline) 10 mg SLOW IVP Q4H PRN PRN Reason: SBP > 180 and HR < 70 Dextrose/Water (D5w) 1,000 mls @ 0 mls/hr IV .Q0M PRN PRN Reason: Hypoglycemia Insulin Glargine 10 units/ (Miscellaneous Medication) 0.1 mls @ 0 mls/hr SC HS [facility] Last Admin: 05/22/19 21:42 Dose: 0.1 mls Insulin Glargine 10 units/ (Miscellaneous Medication) 0.1 mls @ 0 mls/hr SC QAM [facility] Last Admin: 05/23/19 08:27 Dose: 0.1 mls Dextrose/Water (D5w) 1,000 mls @ 0 mls/hr IV .Q0M PRN PRN Reason: Hypoglycemia Insulin Human Lispro (Humalog) 0 units SC .MODERATE SLIDING SC PRN PRN Reason: Moderate Correctional Scale Last Admin: 05/23/19 10:51 Dose: 4 unit Insulin Human Lispro (Humalog) 0 units SC .BEDTIME SLIDING SC PRN PRN Reason: Bedtime Correctional Scale Last Admin: 05/22/19 21:43 Dose: 2 unit Triamcinolone Acetonide (Kenalog 0.1% Cream) 0 gm TOP BIDPRN PRN PRN Reason: Hives Last Admin: 05/23/19 08:30 Dose: 1 applic Vital Signs & Weight: Vital Signs Temp Pulse Resp BP Pulse Ox 05/23/19 15:21 98.9 F 60 18 117/72 98 05/23/19 11:00 97.9 F 73 17 102/57 L 95 05/23/19 07:00 98.1 F 63 18 136/70 100 Weight 194 lb 3 oz - Physical Exam General: alert & oriented x3, appears well HEENT: mucus membranes moist, normocephaly Neck: supple neck, midline trachea Cardiac: regular rate and rhythm, no murmur Lungs: clear to auscultation, no wheeze, rales, rhonchi Neuro: grossly intact, coordination normal Abdomen: active bowel sounds, soft, non-tender Skin: clear Musculoskeletal: normal range of motion, no pain - Labs Result Diagrams: 05/23/19 06:04 05/23/19 06:04 Troponin/CKMB CK-MB (CK-2) 1.3 ng/mL (0-6.6) 05/22/19 10:30 Troponin I 0.051 ng/mL (< 0.028) H 05/22/19 10:30 - Assessment/Plan Assessment/Plan: 1. Paroxysmal afib 2. Diabetes 3. HTN 4 .CHADs VASc score of 2. 5. Groin hematoma. PLAN: - Full anticoagulation for stroke prophylaxis with Eliquis 5mg BID once safe as he has a hematoma on his groin that needs to resolve first. - Multaq. - Low dose BB - Home tomorrow from cardiac perspective.
[2019-05-24] MEDS: Dronedarone HCl 400 MG TAB PO SCH ×2 (09:16→17:32)
[2019-05-24] MEDS: Enoxaparin Sodium 80 MG/0.8 ML SYRINGE SC SCH (09:16)
[2019-05-24] MEDS: Insulin Glargine 10 UNITS in Pre-Filled Syringe 1 EACH SC SCH (09:16)
[2019-05-24] MEDS ORDERED: diphenhydrAMINE 25 MG CAP PO PRN (09:32)
[2019-05-24] MEDS: HumaLOG 300 UNITS/3 ML VIAL SC PRN (12:21)
[2019-05-24 16:12] VITALS: TEMP 98
[2019-05-24 18:32] VITALS: BP 141/84
[2019-05-24] MEDS ORDERED: Apixaban 5 MG TAB PO SCH (21:00)
--- NOTE | 2019-05-25 09:19 | DIS ---
DATE OF ADMISSION: 05/22/2019 DATE OF DISCHARGE: 05/24/2019 DISCHARGE DISPOSITION: Home. FOLLOWUP: 1. Follow up with primary care physician, Dr. Espinoza in 1 week. 2. Follow up with Cardiology, Dr. Li in 2 weeks. ALLERGIES: LISINOPRIL. DISCHARGE MEDICATIONS: 1. Eliquis 5 mg b.i.d. 2. Multaq 400 mg b.i.d. 3. Metoprolol 12.5 mg b.i.d. All other home medications were left unchanged. INPATIENT MANAGER OF PROJECT MANAGEMENT: Cardiology, Dr. Li/Dr. Epstein. BRIEF HOSPITAL COURSE: The patient is a 64-year-old male with recent inguinal hernia repair, presented to the hospital with vomiting and nausea of 2 days' duration. He also had lightheadedness and dizziness, especially on standing. In the emergency room, his workup was consistent with atrial fibrillation with rapid ventricular response. He was started on Cardizem drip that was switched to Multaq. Due to elevated CHADS2 score, he was started on anticoagulation. He understands the risk associated with anticoagulation. I discussed with General Surgery, Dr. Bueno, who is okay with continuing anticoagulation. He remained in sinus rhythm. He has been cleared by Cardiology for discharge. FINAL DIAGNOSES: 1. Paroxysmal atrial fibrillation with rapid ventricular response. 2. Diabetes mellitus, type 2. 3. Hypertension. 4. Groin hematoma from recent surgery. 5. Hypertension. 6. Hyperlipidemia. 7. Chronic anemia. 8. Hypokalemia, replaced. 9. Elevated troponin secondary to demand ischemia/type 2 myocardial infarction. PLAN: Plan of care was discussed with the patient in detail. He stated understanding. Job ID: [id number]
== END 2019-05-24 18:30 | disposition home or self-care (01) | DRG 282 ==
LOC: ERS 10:15 → 2NO 15:14
PROVIDERS: ADMIT Internal Medicine; ATTEND Internal Medicine
DX: I48.0 Paroxysmal atrial fibrillation (principal); I21.A1 Myocardial infarction type 2; I10 Essential (primary) hypertension; E11.9 Type 2 diabetes mellitus without complications; E03.9 Hypothyroidism, unspecified; E78.5 Hyperlipidemia, unspecified; E78.00 Pure hypercholesterolemia, unspecified; S30.1XXA Contusion of abdominal wall, initial encounter; X58.XXXA Exposure to other specified factors, initial encounter; E87.6 Hypokalemia; Z88.8 Allergy status to other drugs, medicaments and biological substances; Z79.84 Long term (current) use of oral hypoglycemic drugs; Z79.899 Other long term (current) drug therapy; Z79.52 Long term (current) use of systemic steroids
CPT/HCPCS: 36415; 36416; 71045; 76999; 80048; 80053; 81003; 81015; 82553; 83690; 84439; 84443; 84484; 85025; 93005; 93306; 96365; 96366; 96375; 96376; J1200; J1650; J1815; J2405; J3490; Q0163

== ENCOUNTER 2021-09-05 18:22 | Emergency (ER) | payer MEDICARE ==
[2021-09-05] MEDS ORDERED: Ketorolac Tromethamine 30 MG/ML VIAL ONE (20:12)
== END 2021-09-05 20:29 | disposition home or self-care (01) ==
LOC: ERS 18:22
DX: S39.012A Strain of muscle, fascia and tendon of lower back, initial encounter (principal); V43.62XA Car passenger injured in collision with other type car in traffic accident, initial encounter; I10 Essential (primary) hypertension; E78.5 Hyperlipidemia, unspecified; E11.9 Type 2 diabetes mellitus without complications; Z79.84 Long term (current) use of oral hypoglycemic drugs
CPT/HCPCS: 72100; 96374; J1885

== ENCOUNTER 2023-10-01 05:43 | Day surgery (SDC) | payer MEDICARE ==
[2023-09-23 08:55] VITALS: BMI 27.6
[2023-10-01] MEDS ORDERED: LevoFLOXacin D5W 500 mg (100 mL) BAG ONE (06:31)
[2023-10-01] MEDS ORDERED: fentaNYL 50 mcg/mL 1 mL Vial ONE (06:31)
[2023-10-01] MEDS ORDERED: PROPOFOL 40 ML ONE (06:31)
[2023-10-01] MEDS ORDERED: cefTRIAXone (ROCEPHIN) 2 GM VIAL ONE (07:10)
[2023-10-01] MEDS ORDERED: Sodium Chloride 0.9% 100 ML ONE (07:11)
[2023-10-01] MEDS ORDERED: ePHEDrine Sulfate 50 MG/10 ML VIAL ONE (07:25)
[2023-10-01] MEDS ORDERED: Lidocaine 1% PF 5 ML VIAL ONE (07:45)
[2023-10-01] MEDS ORDERED: Tamsulosin HCl 0.4 MG CAP ONE (08:19)
[2023-10-01] MEDS ORDERED: Phenazopyridine HCl 100 MG TAB ONE (08:19)
[2023-10-01] MEDS ORDERED: Labetalol HCl 100 MG/20 ML VIAL ONE (08:56)
== END 2023-10-01 10:30 | disposition home or self-care (01) ==
LOC: SDC 05:43
PROVIDERS: ATTEND Urology
PROC: 0VB03ZX Excision of Prostate, Percutaneous Approach, Diagnostic (ICD-10-PCS; principal; 2023-10-01)
DX: N40.1 Benign prostatic hyperplasia with lower urinary tract symptoms (principal); R35.1 Nocturia; R97.20 Elevated prostate specific antigen [PSA]; E11.9 Type 2 diabetes mellitus without complications; E78.5 Hyperlipidemia, unspecified; I48.91 Unspecified atrial fibrillation; I10 Essential (primary) hypertension; E29.9 Testicular dysfunction, unspecified; E03.9 Hypothyroidism, unspecified; K40.90 Unilateral inguinal hernia, without obstruction or gangrene, not specified as recurrent; D35.2 Benign neoplasm of pituitary gland; E27.40 Unspecified adrenocortical insufficiency; S30.22XA Contusion of scrotum and testes, initial encounter; R81 Glycosuria; F80.81 Childhood onset fluency disorder; N52.9 Male erectile dysfunction, unspecified; Z79.890 Hormone replacement therapy; Z79.899 Other long term (current) drug therapy; Z79.84 Long term (current) use of oral hypoglycemic drugs; X58.XXXA Exposure to other specified factors, initial encounter
CPT/HCPCS: 55700; 82962; J3010; 36416; C1747; G0416; J0696; J1956; J2704; J3490

== ENCOUNTER 2024-06-24 12:30 | Outpatient (CLI) | payer MEDICARE | END 2024-06-24 12:31 | disposition home or self-care (01) | LOC: PET 12:30 | PROVIDERS: ATTEND Urology | DX: C61 Malignant neoplasm of prostate (principal) | CPT/HCPCS: 78815; A9552; A9595 ==